=== PATIENT | male | born 1940 | race Caucasian/White ===

== ENCOUNTER → 2016-12-04 | Outpatient (CLI) | payer MEDICARE ==
[2016-12-04 10:34] LABS: Blood Urea Nitrogen 17 mg/dL (9-20); Non-African American GFR(MDRD) >60 (>60 ml/min/1.73 sqM)
--- NOTE | 2016-12-04 13:13 | CT ---
EXAMINATION TYPE: CT abdomen pelvis w con DATE OF EXAM: 12/04/2016 COMPARISON: NONE INDICATION: Patient has no complaints at time of study. New diagnosis of prostate CA. DLP: 988.7 mGycm, Automated exposure control for dose reduction was used. CONTRAST: 100 mL of Omnipaque 300. Study performed with Oral Contrast TECHNIQUE: Axial images were obtained from above the diaphragm to the pubic rami in the axial plane a t 5 mm thick sections. Reconstructed images are reviewed on the computer in the coronal plane. FINDINGS: Limited CT sections are obtained the lung bases. The lung bases are clear. CT ABDOMEN: Liver: Normal Spleen: Normal Pancreas: Normal Adrenal glands: The adrenal glands are normal. Gallbladder: Decompressed. Gallstone is present. Kidneys: No masses are evident. No hydronephrosis is present. No cysts are present. Delayed images were obtained through the kidneys, which remain unremarkable. Aorta: Vascular calcification is within the aorta. There is aneurysmal dilatation of the infrarenal abdominal aorta. This has an AP diameter of 5.5 cm and terminates at the bifurcation. Inferior vena cava: Normal. CT PELVIS: Loops of bowel within the abdomen and pelvis are normal. There are loops of bowel which are incom pletely distended or lack oral contrast limiting their evaluation. Appendix: Normal as visualized. Urinary bladder: Thickened urinary bladder osborne. Prostate is impressing on the inferior aspect of th e urinary bladder. Genitourinary structures: Prostate is prominent. Osseous structures: There is a sclerotic lesion along the medial left iliac wing. Small sclerotic les ions are within the right iliac wing. Facet degenerative changes are present within the lower lumbar spine. Couple small bone islands or tiny sclerotic metastases within lower thoracic vertebral levels may be present. IMPRESSIONS: 1. Abdominal aortic aneurysm with an AP diameter of 5.5 cm. 2. Prominent prostate with impression on the inferior aspect of urinary bladder. Urinary bladder wall has thickened osborne. Direct invasion is not excluded. 3. Sclerotic lesion within the medial left iliac wing suspicious for metastasis.
--- NOTE | 2016-12-04 15:04 | NM ---
EXAMINATION TYPE: NM bone scan whole body DATE OF EXAM: 12/04/2016 COMPARISON: Correlation CT same day HISTORY: 76 year-old male history of prostate cancer TECHNIQUE: Delayed whole-body scanning was performed following the injection of 25.9 mCi Tc 99m MDP. Anterior and posterior whole body images were acquired 3 hours post injection. FINDINGS: Scattered abnormal foci of tracer activity in the right frontal calvarium, left supraorbital region, upper sternal body, posterior elements of a few mid thoracic vertebra, possibly T8-T10 with extension of abnormal activity to involve the proximal aspect of the left ninth rib, left-sided posterior [place] ents of T11 and L1, additional posterior elements of L5, S1, and left greater than right posterior SI joints. Scattered degenerative tracer reticulation of both shoulders, sternoclavicular joints, knees, hands, and feet. IMPRESSION: Abnormal activity involving the calvarium, upper sternal body, thoracic and lumbar spine (extensively involving a few mid thoracic vertebra with extension to involve the proximal left ninth rib), sacrum , and left greater than right medial iliac bones. Findings suggest osseous metastatic disease. Correl ate with PSA values.
== END | disposition home or self-care (01) ==
LOC: RADNMMAIN 09:56
PROVIDERS: ATTEND Urology
DX: C61 Malignant neoplasm of prostate (principal); R94.8 Abnormal results of function studies of other organs and systems; I71.4 Abdominal aortic aneurysm, without rupture; N32.89 Other specified disorders of bladder; Z88.7 Allergy status to serum and vaccine
CPT/HCPCS: 82565; 84520; 74177; 36415; 78306; A9503; Q9967

== ENCOUNTER → 2017-12-04 | Outpatient (CLI) | payer MEDICARE ==
--- NOTE | 2017-12-04 15:35 | NM ---
EXAMINATION TYPE: NM bone scan whole body DATE OF EXAM: 12/04/2017 COMPARISON: 12/04/2016 HISTORY: Prostate carcinoma. Follow-up exam. Delayed whole-body scanning was performed following the injection of 25.2 mCi Tc 99m MDP. Images acq uired 3 hours post injection. FINDINGS: The previously seen scattered abnormal foci of radiotracer within the right frontal calvarium, left s upraorbital region, upper sternal body, posterior elements of the midthoracic vertebrae, left ninth r ib, left posterior elements of T11 and L1, posterior elements of L5 and S1, and sacroiliac joints all appear less intense than on the prior examination, most compatible with treated metastatic disease. No new foci of radiotracer uptake are seen within the axial or appendicular skeleton. Symmetric uptak e within the acromio clavicular joints, glenohumeral joints, sternoclavicular joints, knees, wrists, elbows, tarsal bones, phalanges and hips are likely due to degenerative arthropathy. Physiologic excr etion is noted within the kidneys and urinary bladder. IMPRESSION: 1. Decreased multifocal radiotracer uptake of the axial and appendicular skeleton in comparison to th e prior of 12/04/2016 most compatible with treated disease as the majority of these lesions are barely perceptible on today's examination and readily perceptible on the prior. No new suspicious radiotrace r uptake is seen. 2. Degenerative changes of the axial and appendicular skeleton.
== END | disposition home or self-care (01) ==
LOC: RADNMMAIN 10:05
PROVIDERS: ATTEND Urology
DX: C61 Malignant neoplasm of prostate (principal); R94.8 Abnormal results of function studies of other organs and systems; R93.8 Abnormal findings on diagnostic imaging of other specified body structures
CPT/HCPCS: 78306; A9503

== ENCOUNTER → 2018-03-18 | Outpatient (CLI) | payer MEDICARE ==
--- NOTE | 2018-03-18 16:34 | XR ---
Lumbar spine HISTORY: Low back pain 3 views of the lumbar spine, correlation to bone scan 12/04/2017, CT abdomen pelvis 12/04/2016 Lumbar vertebral bodies show preserved height and alignment. Bone mineralization is reduced. There is multilevel spondylosis. Loss of disc height present at intervertebral levels, there is vacuum presen t L4-5, L5-S1. Sclerosis present in the posterior elements of the lower lumbar spine compatible with facet arthropathy. There is an abdominal aortic aneurysm present, calcification in the aorta suggests infrarenal location. Sclerotic change present at the sacroiliac joints and pelvis, also the inferior aspect of the L3 vertebral body. IMPRESSION: Abdominal aortic aneurysm. Degenerative disc disease, facet arthropathy and osteopenia. M etastatic disease to the bone. A Yellow level critical message alert has been initiated for Uli Burns DO via the [employer] Critical Results System on 03/18/2018 4:32 PM. This message alert has been sent to Uli avila DO via the preferences provided by the clinician for the receipt of Radiology Critical Findings . Message ID [id number].
== END | disposition home or self-care (01) ==
LOC: RADXRYALE 15:14
PROVIDERS: ATTEND Family Medicine
DX: M51.36 Other intervertebral disc degeneration, lumbar region (principal); M46.96 Unspecified inflammatory spondylopathy, lumbar region; M85.88 Other specified disorders of bone density and structure, other site; C79.51 Secondary malignant neoplasm of bone
CPT/HCPCS: 72100

== ENCOUNTER → 2018-09-06 | Outpatient (CLI) | payer MEDICARE ==
[2018-09-06 12:43] LABS: Blood Urea Nitrogen 23 mg/dL (9-20)
--- NOTE | 2018-09-06 18:14 | CT ---
EXAMINATION TYPE: CT abdomen pelvis w con DATE OF EXAM: 09/06/2018 COMPARISON: 12/04/2016 INDICATION: Prostate and Bone CA DLP: 1379.6 mGycm, Automated exposure control for dose reduction was used. CONTRAST: 100 mL of Isovue 300. Study performed with Oral Contrast TECHNIQUE: Axial images were obtained from above the diaphragm to the pubic rami in the axial plane a t 5 mm thick sections. Reconstructed images are reviewed on the computer in the coronal plane. FINDINGS: Limited CT sections are obtained the lung bases. The lung bases are clear. CT ABDOMEN: Liver: Normal Spleen: Normal Pancreas: There is mild atrophy of the pancreas. Adrenal glands: The adrenal glands are normal. Gallbladder: Gallstones are present. Kidneys: No masses are evident. No hydronephrosis is present. No cysts are present. Delayed images were obtained through the kidneys, which remain unremarkable. Aorta: Vascular calcification is within the aorta. There is an abdominal aortic aneurysm with an AP dimension of 6.1 cm. This begins in the infrarenal region and terminates at the bifurcation. Inferior vena cava: Normal. CT PELVIS: Loops of bowel within the abdomen and pelvis are normal. There are loops of bowel which are incom pletely distended or lack oral contrast limiting their evaluation. Appendix: Normal as visualized. Urinary bladder: Normal. Genitourinary structures: Prostate is prominent and may has some inferior impression on the urinary b ladder. Osseous structures: There is a punctate density at the inferior medial right lesser trochanter. This could be a small sclerotic metastasis or bone island. Degenerative changes are at the bilateral hips. There are small irregular areas of sclerosis within the iliac wings with some more focal larger area s within the medial iliac wings left more so than right with a focal area within the S1 vertebral lev el. Findings are suspicious for metastatic lesions. Facet degenerative changes are present. Sclerotic lesions are identified within the lumbar vertebral levels. The T9 has a larger area of involvement i ncluding the spinous process. IMPRESSIONS: 1. Multiple sclerotic metastases. 2. Abdominal aortic aneurysm 6.1 cm. This has enlarged comparison study which previously measured 5.5 cm.
== END ==
LOC: RADCTMAIN 12:06
PROVIDERS: ATTEND Urology
DX: C61 Malignant neoplasm of prostate (principal); C79.51 Secondary malignant neoplasm of bone; I71.4 Abdominal aortic aneurysm, without rupture
CPT/HCPCS: 82565; 84520; 74177; 36415; Q9967